=== PATIENT | female | born 1990 | race Caucasian/White ===

== ENCOUNTER 2016-12-22 13:20 | Emergency (ER) | payer OTHER ==
[~2016-12-22] VITALS: Ht 162.6 cm; Wt 78.0 kg
[2016-12-22 13:25] VITALS: BP_SYST 110; BP_SYST 124; BP_DIAS 62; BP_DIAS 81; PULSE 98; RESP 16; TEMP 97.9; TEMP 98.3; O2SAT 97; O2SAT 98
--- NOTE | 2016-12-22 15:19 | RADRPT ---
EXAM DATE/TIME: 12/22/2016 15:02 [place] COMPARISON: No previous studies available for comparison. INDICATIONS : Fall. Right anterior wrist pain. MEDICAL HISTORY : None. SURGICAL HISTORY : Previous right wrist fracture, patient cannot specify. ENCOUNTER: Initial ACUITY: 1 day PAIN SCORE: 9/10 LOCATION: Right anterior wrist FINDINGS: Three view examination of the right wrist demonstrates soft tissue swelling without dislocation, or f racture. The carpal bones are in normal alignment. The joint spaces are maintained. Bony mineraliz ation is normal. CONCLUSION: Soft tissue swelling without fracture. Ethan Purcell MD on December 22, 2016 at 15:16 Board Certified Radiologist. This report was verified electronically.
--- NOTE | 2016-12-22 15:22 | PD ---
HPI . fell and hurt right wrist Chief Complaint: Fall Time Seen by Provider: 14:40 Travel History International Travel<30 days: No Contact w/Intl Traveler<30days: No Traveled to known affect area: No History of Present Illness HPI 26-year-old female visiting from [place] here with complaints of right wrist pain. Patient tells me that she had a previous fracture here and recently fell on her wrist. She denies any other injury and is complaining of pain in her right wrist rated as 5/10 without movement. She wants to know if it is broken before trying any pain medications or interventions. She is accompanied by her significant other. [facility] Past Medical History Medical History: Denies Significant Hx Diminished Hearing: No Tetanus Vaccination: > 5 Years Influenza Vaccination: No ?: Not : 2 Para: 2 Past Surgical History Surgical History: No Previous Surgery Social History Alcohol Use: Yes (OCASSIONALLY) Tobacco Use: No (PT DENIES) Substance Use: No (PT DENIES) Allergies-Medications (Allergen,Severity, Reaction): Coded Allergies: Penicillin (Verified Allergy, Unknown, 12/22/16) Reported Meds & Prescriptions Reported Meds & Active Scripts Active Ibuprofen 800 Mg Tab 800 Mg PO TID Review of Systems General / Constitutional: No: Fever Eyes: No: Visual changes HENT: No: Headaches Cardiovascular: No: Chest Pain or Discomfort Respiratory: No: Shortness of Breath Gastrointestinal: No: Abdominal Pain Genitourinary: No: Dysuria Musculoskeletal: Positive: Pain (right wrist pain) Skin: No Rash Neurologic: No: Weakness Psychiatric: No: Depression Endocrine: No: Polydipsia Hematologic/Lymphatic: No: Easy Bruising Physical Exam Narrative GENERAL: AAO x 3, no acute distress, Well-nourished, well-developed patient. SKIN: Warm and dry. No visible rashes or bruising. HEAD: Normocephalic and atraumatic. EYES: No scleral icterus. No injection or drainage. EOM intact, PERRLA ENT: No nasal drainage noted. Mucous membranes pink. Airway patent. NECK: Supple, trachea midline. No JVD. CARDIOVASCULAR: Regular rate and rhythm without murmurs, gallops, or rubs. RESPIRATORY: Breath sounds equal bilaterally. No accessory muscle use. No rhonchi or rales. GASTROINTESTINAL: Abdomen soft, non-tender, nondistended. EXTREMITIES: No cyanosis. mild ecchymosis over distal radius, decreased rom and tenderness to distal radius. BACK: No obvious deformity. NEURO: CN II-12 intact, director data strength reduced right hand due to pain, UE and LE 5/5, no focal deficits PSYCH: AAO x 3, normal affect. Data Data Last Documented VS Vital Signs Date Time Temp Pulse Resp B/P Pulse Ox O2 Delivery O2 Flow Rate FiO2 12/22/16 15:34 97.8 69 16 118/83 100 12/22/16 15:16 Room Air Orders Wrist, Complete ([id number]) (12/22/16 14:45) Jean Bandage (12/22/16 15:22) MDM Medical Decision Making Medical Screen Exam Complete: Yes Emergency Medical Condition: Yes Medical Record Reviewed: Yes Differential Diagnosis Right wrist sprain, right wrist fracture, less likely dislocation Narrative Course 26-year-old female here with complaints of right wrist pain status post fall. X-ray has been ordered as there is some ecchymosis and tenderness to the distal radius. Last Impressions Wrist X-Ray 12/22/16 1445 Signed Impressions: Service Date/Time: Thursday, December 22, 2016 15:02 - CONCLUSION: Soft tissue swelling without fracture. Ethan Purcell MD Discussed results finding with patient. She was very happy. I provided her with an Jean wrap. Discussed RICE. Ibuprofen for inflammation at home. Patient verbalized understanding of instructions, questions were answered, and thanked me for their care. I advised them if their condition worsens, please return to the nearest emergency room for further care. Diagnosis Primary Impression: Right wrist pain Patient Instructions: General Instructions Additional Instructions: Rest the affected area as much as possible. Ice this area for 15-20 minutes at a time. You can do this every hour or as much as tolerated. Keep this area compressed (jean bandage) as tolerated. Elevate this area. Use ibuprofen as needed for pain and inflammation. Please return to emergency department if your symptoms return or worsen. Follow up with your primary care provider. Take medications as prescribed. Med/Other Pt SpecificInfo: Prescription(s) given Scripts Ibuprofen 800 Mg Pyt878 Mg PO TID #21 TAB Prov:Maximiliano Benson MD 12/22/16 Disposition: 01 DISCHARGE HOME Condition: Stable Deanna Romero Dec 22, 2016 15:22
[2016-12-22] MEDS ORDERED: IBUP800T23 PO (15:23)
[2016-12-22 15:34] VITALS: BP 118/83; TEMP 97.8
== END 2016-12-22 15:34 | disposition home or self-care (01) ==
LOC: NEPK 13:20
DX: M25.531 Pain in right wrist (principal); Z88.0 Allergy status to penicillin; Z79.1 Long term (current) use of non-steroidal anti-inflammatories (NSAID)
CPT/HCPCS: 73110; 99283